=== PATIENT | female | born 1930 | race Caucasian/White ===

== ENCOUNTER 2017-02-17 13:53 | Inpatient (IN) | payer OTHER ==
[~2017-02-17] VITALS: Ht 152.4 cm; Wt 60.4 kg
[2017-02-17 16:24] LABS: HEMATOCRIT 45.6 % (36.0-46.0); MCHC 32.9 G/DL (30.0-36.0); RBC DIS.WIDTH-CV 13.7 % (11.8-14.6); RBC DIS.WIDTH-SD 44.1 % (39-53); RED BLOOD COUNT 5.18 M/uL (3.80-5.20); WHITE BLOOD COUNT 7.5 K/uL (4.1-10.2)
[2017-02-17 16:33] LABS: CHLORIDE 105 mEq/L (99-109); POTASSIUM 4.1 mEq/L (3.7-5.4); SODIUM 140 mEq/L (136-147)
[2017-02-17 16:35] LABS: GLUCOSE 111 mg/dL (70-99)
[2017-02-17 16:36] LABS: ANION GAP 11 MEQ/L (2-14)
[2017-02-17 16:39] LABS: GFR ESTIMATE (CALCULATED) > 59 mL/min/
[2017-02-17 16:40] LABS: UREA NITROGEN (BUN) 16 mg/dL (9-23)
[2017-02-17 18:09] LABS: TROP-I INTERPRETATION NEGATIVE; TROPONIN-I < 0.01 ng/mL (0.0-0.30)
[2017-02-17 18:17] LABS: PLATELET CLUMPS PRESENT - PLATELET COUNT APPEARS ADQ.; PLATELET COUNT UNABLE TO REPORT K/uL (156-360)
[2017-02-17 23:48] VITALS: BP 135/73
[2017-02-18 00:31] LABS: HEMATOCRIT 40.8 % (36.0-46.0); MCH 29.1 PG (29.0-34.0); MCHC 33.3 G/DL (30.0-36.0); MCV 87.4 FL (83-99); RBC DIS.WIDTH-CV 13.7 % (11.8-14.6); RBC DIS.WIDTH-SD 43.7 % (39-53); RED BLOOD COUNT 4.67 M/uL (3.80-5.20); WHITE BLOOD COUNT 8.1 K/uL (4.1-10.2)
[2017-02-18 01:09] LABS: MEAN PLAT.VOLUME 11.8 uM^3 (9.5-12.4); PLAT.SUFFICIENCY ADEQUATE
[2017-02-18 01:21] LABS: PLATELET COUNT 148 K/uL (156-360)
[2017-02-18 03:41] VITALS: BP 118/58
[2017-02-18 07:52] LABS: Estimated Average Glucose 131 mg/dL (70-123); HEMOGLOBIN A1c (GLYCOHEMOGLOB) 6.2 % HGB (Below 5.7)
[2017-02-18 08:30] VITALS: BP 152/71
[2017-02-18 13:34] LABS: HDL CHOLESTEROL 42 MG/DL (Desirable>=50); LDL CHOLESTEROL 106 mg/dL (Desirable<100); NON-HDL CHOLESTEROL 126 mg/dL (Desirable<160); TOTAL CHOLESTEROL 168 mg/dL (Desirable<200); TRIGLYCERIDES 100 MG/DL (Normal: <150)
[2017-02-18 15:05] VITALS: BP 141/67
[2017-02-18 20:39] VITALS: BP 134/64
[2017-02-18 23:45] VITALS: BP 135/67
[2017-02-19 04:13] VITALS: BP 139/66
[2017-02-19 09:29] VITALS: BP 153/84
[2017-02-19 12:05] VITALS: BP 122/66
[2017-02-19] MEDS ORDERED: ASPIRIN EC325 MG PO (14:54)
[2017-02-19] MEDS ORDERED: PRAVASTATIN SOD40 MG PO (14:54)
== END 2017-02-19 17:56 | disposition home or self-care (01) | DRG 66 ==
LOC: EME 13:53 → EDOF 21:34 → 5WEST 21:34 → ENRESERV 21:37 → 5WEST 23:23 → 5SOUTH 02-18 11:42 → 5WEST 02-18 11:42 → ENRESERV 02-18 12:47 → CANRESERV 02-18 12:47 → ENRESERV 02-18 13:18 → 5SOUTH 02-18 14:37
PROVIDERS: Hospitalist; Nurse Practitioner Adult Health
DX: I63.9 Cerebral infarction, unspecified (principal); R47.01 Aphasia; F03.90 Unspecified dementia, unspecified severity, without behavioral disturbance, psychotic disturbance, mood disturbance, and anxiety; J43.9 Emphysema, unspecified; I73.9 Peripheral vascular disease, unspecified; R29.700 NIHSS score 0
CPT/HCPCS: 70450; 70551; 71020; 80048; 80061; 82607; 82746; 83036; 84484; 85027; 93005; 93880; 99281; 99284; G0378; J1644